=== PATIENT | male | born 1930 | race Asian ===

== ENCOUNTER → 2017-07-05 | Outpatient (CLI) | payer MEDICARE, OTHER ==
[~2017-07-05] MED LIST: ACET-784 PO; ATOR40TA28 PO; CARV3 PO; FURO20 PO; METF500T4 PO; OMEG-135 PO; POTA8TAB4 PO; RIVA20TA PO; TAMS0.4C32 PO
[2017-07-05 11:14] VITALS: BP 121/63
== END | disposition home or self-care (01) ==
LOC: SRCNTR 10:46
PROVIDERS: ATTEND Internal Medicine Clinical Cardiac Electrophysiology
DX: Z45.02 Encounter for adjustment and management of automatic implantable cardiac defibrillator (principal); I11.0 Hypertensive heart disease with heart failure; I50.22 Chronic systolic (congestive) heart failure; I48.91 Unspecified atrial fibrillation; I25.10 Atherosclerotic heart disease of native coronary artery without angina pectoris
CPT/HCPCS: G0463

== ENCOUNTER → 2017-10-18 | Outpatient (CLI) | payer MEDICARE, OTHER ==
[~2017-10-18] VITALS: Ht 167.6 cm; Wt 66.0 kg
[~2017-10-18] MED LIST changes: -METF500T4 PO; +METF500T6 PO; -POTA8TAB4 PO
[2017-10-18 10:48] VITALS: BP 120/67
== END | disposition home or self-care (01) ==
LOC: SRCNTR 10:21
PROVIDERS: ATTEND Internal Medicine Clinical Cardiac Electrophysiology
DX: Z45.02 Encounter for adjustment and management of automatic implantable cardiac defibrillator (principal); I11.0 Hypertensive heart disease with heart failure; I50.22 Chronic systolic (congestive) heart failure
CPT/HCPCS: G0463